=== PATIENT | female | born 1985 | race Caucasian/White ===

== ENCOUNTER 2019-12-08 13:51 | Observation (INO) ==
[2019-12-08 14:31] LABS: Basophils # 0.1 K/mcL (0.0-0.2); Basophils % 0.5 %; Eosinophils # 0.1 K/mcL (0.0-0.6); Eosinophils % 0.6 %; Hematocrit 41.8 % (35.3-44.9); Immature Granulocytes % 0.5 % (0-4); Lymphocytes # 2.3 K/mcL (0.6-4.6); Lymphocytes % 24.7 %; Mean Corpuscular HGB Conc 31.1 g/dL (31.6-35.5); Mean Corpuscular Hemoglobin 27.5 pg (28.0-33.3); Mean Corpuscular Volume 88.4 fL (83.0-100.0); Mean Platelet Volume 9.3 fL (9.4-12.4); Monocytes # 0.8 K/mcL (0.0-1.3); Monocytes % 8.1 %; Neutrophils # 6.1 K/mcL (1.6-8.9); Platelet Count 409 K/mcL (140-400); Red Blood Count 4.73 M/mcL (3.82-4.97); Red Cell Distribution Width 13.4 % (11.5-14.5); Segmented Neutrophils % 65.6 %; White Blood Count 9.4 K/mcL (4.3-11.1)
[2019-12-08] MEDS ORDERED: hydrOXYzine pamoate 25 MG CAPSULE PO ONE (14:36)
[2019-12-08 14:47] LABS: Amphetamine Screen,Urine Negative ng/mL (Cutoff=1000); Barbiturate Screen,Urine Negative ng/mL (Cutoff=200); Benzodiazepines Screen,Urine Negative ng/mL (Cutoff=200); Cannabinoid Screen,Urine Negative ng/mL (Cutoff = 50); Cocaine Screen,Urine Negative ng/mL (Cutoff= 300); Opiate Screen,Urine Negative ng/mL (Cutoff=300); Phencyclidine Screen,Urine Negative ng/mL (Cutoff=25)
[2019-12-08 14:51] LABS: Acetaminophen < 10 mcg/mL (10-20); BUN/Creatinine Ratio 13 (6-26); Blood Urea Nitrogen 11 mg/dL (6-20); Calcium 9.5 mg/dL (8.6-10.3); Carbon Dioxide 29 mEq/L (23-29); Chloride 104 mEq/L (98-107); Ethanol < 10 mg/dL (Less than 10); Glucose 95 mg/dL (70-105); Osmolality,Calculated 283 (280-300); Salicylate < 2.5 mg/dL (15.0-30.0); Sodium 137 mEq/L (136-145); eGFR For African Americans > 60 (> 60); eGFR For Non-African Americans > 60 (> 60)
[2019-12-08] MEDS ORDERED: *HR* LORazepam 1 MG TABLET PO PRN (15:50)
[2019-12-08] MEDS ORDERED: traZODone 50 MG TABLET PO PRN (15:50)
[2019-12-08] MEDS ORDERED: *HR* LORazepam 2 MG/ML VIAL IM PRN (15:50)
[2019-12-08] MEDS ORDERED: Acetaminophen 325 MG TABLET PO PRN (15:50)
[2019-12-08] MEDS ORDERED: haloperidoL 5 MG TABLET PO PRN (15:50)
[2019-12-08] MEDS ORDERED: Mag Hydrox/Al Hydrox/Simeth 30 ML UDC PO PRN (15:50)
[2019-12-08] MEDS ORDERED: Haloperidol Lactate 5 MG/ML VIAL IM PRN (15:50)
[2019-12-08] MEDS ORDERED: MOM Conc 10 ML UD.LIQ PO PRN (15:50)
[2019-12-08] MEDS: ARIPiprazole 5 MG TABLET PO SCH (20:35)
[2019-12-08] MEDS: hydrOXYzine pamoate 25 MG CAPSULE PO PRN (20:36)
[2019-12-08] MEDS: traZODone 50 MG TABLET PO SCH (20:36)
[2019-12-09] MEDS: hydrOXYzine pamoate 25 MG CAPSULE PO PRN ×4 (04:18→22:58)
[2019-12-09] MEDS: ARIPiprazole 5 MG TABLET PO SCH ×2 (09:11→20:12)
[2019-12-09] MEDS: Vitamin B Complex/Vit C/Vit E 1 EACH TABLET PO SCH (09:11)
[2019-12-09] MEDS ORDERED: hydrOXYzine pamoate 25 MG CAPSULE PO ONE (17:07)
[2019-12-09] MEDS: traZODone 50 MG TABLET PO SCH (20:12)
[2019-12-10] MEDS: ARIPiprazole 5 MG TABLET PO SCH (08:54)
[2019-12-10] MEDS: Vitamin B Complex/Vit C/Vit E 1 EACH TABLET PO SCH (08:54)
[2019-12-10 09:18] VITALS: BP 135/94
== END 2019-12-10 11:30 | disposition home or self-care (01) ==
LOC: 1ANU 13:51 → EMEROOARM 13:51 → 1ANU 17:28
PROVIDERS: ADMIT Psychiatry & Neurology Psychiatry; ATTEND Psychiatry & Neurology Psychiatry